=== PATIENT | male | born 1980 | race African-American/Black ===

== ENCOUNTER 2021-06-07 08:49 | Emergency (ER) | payer OTHER ==
[2021-06-07 08:55] VITALS: BP 123/77; PULSE 77; TEMP 98; BMI 23.6
== END 2021-06-07 10:02 | disposition home or self-care (01) ==
LOC: JERFT 08:49
DX: S16.1XXA Strain of muscle, fascia and tendon at neck level, initial encounter (principal); S46.911A Strain of unspecified muscle, fascia and tendon at shoulder and upper arm level, right arm, initial encounter; Y99.9 Unspecified external cause status
CPT/HCPCS: 99283-25

== ENCOUNTER 2021-10-18 02:35 | Emergency (ER) | payer OTHER ==
[2021-10-18 02:57] VITALS: BP 122/78; PULSE 82; TEMP 98.2; BMI 28.8
[2021-10-18] MEDS ORDERED: DEXAMETHASONE SOD PHOSPHATE 10 MG/1 ML VIAL IM ONE (03:08)
[2021-10-18] MEDS ORDERED: FAMOTIDINE 10 MG TABLET PO ONE (03:08)
[2021-10-18] MEDS ORDERED: DIPHENHYDRAMINE HCL 25 MG/10 ML CUP PO ONE (03:08)
[2021-10-18] MEDS ORDERED: DEXAMETHASONE SOD PHOSPHATE 10 MG/1 ML VIAL ONE (03:13)
[2021-10-18] MEDS ORDERED: FAMOTIDINE 20 MG TABLET ONE (03:13)
[2021-10-18] MEDS ORDERED: diphenhydrAMINE HCL 25 MG CAPSULE (FP) PO ONE (03:13)
== END 2021-10-18 03:28 | disposition home or self-care (01) ==
LOC: JER 02:35
PROC: 3E023NZ Introduction of Analgesics, Hypnotics, Sedatives into Muscle, Percutaneous Approach (ICD-10-PCS; principal; 2021-10-18)
DX: R21 Rash and other nonspecific skin eruption (principal)
CPT/HCPCS: 99283-25; J1100

== ENCOUNTER 2022-01-07 13:26 | Emergency (ER) | payer OTHER ==
[2022-01-07 13:44] VITALS: BP 150/79; PULSE 71; RESP 18; BMI 23.6
[2022-01-07] MEDS ORDERED: DIPHTH,PERTUSS(ACELL),TET 0.5 ML DISP.SYRIN IM ONE ×2 (14:27→14:32)
== END 2022-01-07 14:35 | disposition home or self-care (01) ==
LOC: JER 13:26 → JERFT 13:26
PROC: 3E0234Z Introduction of Serum, Toxoid and Vaccine into Muscle, Percutaneous Approach (ICD-10-PCS; principal; 2022-01-07)
DX: S61.412A Laceration without foreign body of left hand, initial encounter (principal); W26.8XXA Contact with other sharp object(s), not elsewhere classified, initial encounter
CPT/HCPCS: 90715; 99284-25

== ENCOUNTER 2022-10-05 08:15 | Emergency (ER) | payer OTHER ==
[2022-10-05 08:23] VITALS: BP 131/87; PULSE 68; RESP 18; TEMP 97.9; BMI 22.6
[2022-10-05] MEDS ORDERED: ACETAMINOPHEN 1000 MG/100 ML BAG IVPB ONE (08:42)
[2022-10-05] MEDS ORDERED: MAG HYDROX/AL HYDROX/SIMETH -MYLANTA- ORAL SUSPENSION PO ONE (08:42)
[2022-10-05] MEDS ORDERED: FAMOTIDINE 20 MG/50 ML IVPB 20 MG/50 ML MG IVPB ONE ×2 (08:42→08:53)
[2022-10-05] MEDS ORDERED: ACETAMINOPHEN INJECTION 100 ML IVPB ONE (08:53)
[2022-10-05] MEDS ORDERED: MAG HYDROX/AL HYDROX/SIMETH 30 ML UNIT-DOSE CUP ONE (08:53)
[2022-10-05 09:23] LABS: BASO % 1.1 % (0-2.0); EOS % 6.7 % (0-4.5); HEMATOCRIT 38.6 % (35.4-49); HEMOGLOBIN 13.2 GM/dL (11.7-16.9); MCH 31.8 pg (25.7-33.7); MCHC 34.2 g/dl (32.0-35.9); MEAN CELL VOLUME 92.9 fl (80-96); MEAN PLT VOLUME 9.6 fl (7.5-11.1); MONO % 14.3 % (3.8-10.2); NEUT % 39.9 % (42.8-82.8); PLATELET COUNT 167 10^3/uL (134-434); RBC 4.16 M/mm3 (4.00-5.60); RDW 13.9 % (11.9-15.9); WHITE BLOOD COUNT 4.1 K/mm3 (4.0-10.0)
[2022-10-05 09:29] LABS: INR 1.07 (0.83-1.09); PROTHROMBIN TIME (PATIENT) 12.4 SEC (9.7-13.0)
[2022-10-05 09:32] LABS: ACTIVATED PTT 33.3 SECONDS (25.2-36.5)
[2022-10-05 09:42] LABS: POTASSIUM 4.7 mmol/L (3.5-5.1)
[2022-10-05 09:44] LABS: BLOOD UREA NITROGEN 13.8 mg/dL (7-18); CALCIUM 9.5 mg/dL (8.5-10.1)
[2022-10-05 09:49] LABS: BILIRUBIN,TOTAL 0.4 mg/dL (0.2-1); TOT PROT 7.7 g/dl (6.4-8.2)
== END 2022-10-05 10:31 | disposition home or self-care (01) ==
LOC: JER 08:15
PROC: 3E033GC Introduction of Other Therapeutic Substance into Peripheral Vein, Percutaneous Approach (ICD-10-PCS; principal; 2022-10-05)
PROC: 3E033NZ Introduction of Analgesics, Hypnotics, Sedatives into Peripheral Vein, Percutaneous Approach (ICD-10-PCS; 2022-10-05)
DX: R07.89 Other chest pain (principal); R00.2 Palpitations
CPT/HCPCS: 36415; 71045-TC-FY; 80053; 83690; 84439; 84443; 84484; 85025; 85610; 85730; 93005; 93010; 99285-25

== ENCOUNTER 2023-01-02 14:50 | Emergency (ER) | payer OTHER ==
[2023-01-02 15:02] VITALS: BP 123/75; PULSE 79; RESP 18; TEMP 98.7; BMI 22.8
[2023-01-02 16:05] LABS: EPI CELLS 1 /uL (0-25.1); HYALINE CASTS 0 /uL (0-3.1); URINE APPEARANCE CLEAR; URINE BACTERIA 3 /uL (0-1359); URINE BILIRUBIN NEGATIVE (NEGATIVE); URINE COLOR YELLOW; URINE GLUCOSE (UA) NEGATIVE (NEGATIVE); URINE KETONE TRACE (NEGATIVE); URINE LEUK ESTERASE NEGATIVE (NEGATIVE); URINE NITRITE NEGATIVE (NEGATIVE); URINE PROTEIN NEGATIVE (NEGATIVE); URINE RBC 35 /uL (0-23.9); URINE WBC 3 /uL (0-25.8)
[2023-01-02 16:44] LABS: BASO % 0.6 % (0-2.0); EOS % 1.8 % (0-4.5); HEMATOCRIT 37.7 % (35.4-49); HEMOGLOBIN 13.1 GM/dL (11.7-16.9); LYMPH % 42.1 % (8-40); MCH 32.1 pg (25.7-33.7); MCHC 34.8 g/dl (32.0-35.9); MEAN CELL VOLUME 92.3 fl (80-96); MEAN PLT VOLUME 8.7 fl (7.5-11.1); MONO % 12.2 % (3.8-10.2); NEUT % 43.3 % (42.8-82.8); PLATELET COUNT 169 10^3/uL (134-434); RBC 4.08 M/mm3 (4.00-5.60); RDW 13.2 % (11.9-15.9); WHITE BLOOD COUNT 4.5 K/mm3 (4.0-10.0)
[2023-01-02 17:22] LABS: ALBUMIN 4.1 g/dl (3.4-5.0); BILIRUBIN,TOTAL 0.2 mg/dL (0.2-1); CALCIUM 9.1 mg/dL (8.5-10.1); CREATININE 1.3 mg/dL (0.55-1.3); POTASSIUM 3.6 mmol/L (3.5-5.1); TOT PROT 7.7 g/dl (6.4-8.2)
== END 2023-01-02 18:18 | disposition home or self-care (01) ==
LOC: JERFT 14:50 → JER 14:50 → JERFT 18:18
DX: R35.0 Frequency of micturition (principal); R30.0 Dysuria
CPT/HCPCS: 36415; 80053; 81003; 82962; 83036; 85025; 87086; 99283-25

== ENCOUNTER 2023-01-07 16:39 | Emergency (ER) | payer OTHER ==
[2023-01-07 17:02] VITALS: BP 143/91; PULSE 63; RESP 20; TEMP 98.6; BMI 22.8
[2023-01-07] MEDS ORDERED: ACETAMINOPHEN 1000 MG/100 ML BAG IVPB ONE (17:18)
[2023-01-07] MEDS ORDERED: METOCLOPRAMIDE HCL INJECTION 10 MG/2 ML VIAL IVPB ONE (17:18)
[2023-01-07] MEDS ORDERED: SODIUM CHLORIDE 1,000 ML IV STA (17:18)
[2023-01-07] MEDS ORDERED: METOCLOPRAMIDE HCL INJECTION 10 MG/2 ML VIAL ONE (17:40)
[2023-01-07] MEDS ORDERED: ACETAMINOPHEN INJECTION 100 ML IVPB ONE (17:41)
== END 2023-01-07 18:25 | disposition home or self-care (01) ==
LOC: FER 16:39
PROC: 3E033NZ Introduction of Analgesics, Hypnotics, Sedatives into Peripheral Vein, Percutaneous Approach (ICD-10-PCS; principal; 2023-01-07)
PROC: 3E033GC Introduction of Other Therapeutic Substance into Peripheral Vein, Percutaneous Approach (ICD-10-PCS; 2023-01-07)
PROC: 3E0337Z Introduction of Electrolytic and Water Balance Substance into Peripheral Vein, Percutaneous Approach (ICD-10-PCS; 2023-01-07)
DX: G43.909 Migraine, unspecified, not intractable, without status migrainosus (principal); H53.8 Other visual disturbances
CPT/HCPCS: 99284-25

== ENCOUNTER 2023-11-15 16:53 | Emergency (ER) | payer OTHER ==
[2023-11-15 17:06] VITALS: BP 111/89; PULSE 61; RESP 18; TEMP 97.7; BMI 23.6
[2023-11-15] MEDS ORDERED: ACETAMINOPHEN INJECTION 100 ML IVPB ONE (17:20)
[2023-11-15] MEDS ORDERED: FAMOTIDINE 20 MG/50 ML IVPB 20 MG/50 ML MG IVPB ONE (17:20)
[2023-11-15] MEDS ORDERED: MAG HYDROX/AL HYDROX/SIMETH 30 ML UNIT-DOSE CUP ONE (17:20)
[2023-11-15] MEDS: MAG HYDROX/AL HYDROX/SIMETH 30 ML UNIT-DOSE CUP PO ONE (17:45)
[2023-11-15] MEDS: FAMOTIDINE 20 MG/50 ML IVPB 20 MG/50 ML MG IVPB ONE (18:00)
[2023-11-15] MEDS: SODIUM CHLORIDE 1,000 ML IV STA (18:00)
[2023-11-15] MEDS: ACETAMINOPHEN 1000 MG/100 ML BAG IVPB ONE (18:02)
[2023-11-15 18:07] LABS: HEMOGLOBIN 13.3 G/dL (11.7-16.9); MCH 32.6 pg (25.7-33.7); MCHC 33.3 g/dl (32.0-35.9); MEAN CELL VOLUME 97.8 fl (80-96); MEAN PLT VOLUME 9.2 fl (7.5-11.1); PLATELET COUNT 155.4 10^3/uL (134-434); RBC 4.09 10^6/uL (4.00-5.60); WHITE BLOOD COUNT 6.1 10^3/uL (4.0-10.8)
[2023-11-15 18:26] LABS: ALBUMIN 4.4 g/dl (3.4-5.0); BILIRUBIN,TOTAL 0.4 mg/dl (0.2-1); CALCIUM 9.5 mg/dl (8.5-10.1); CREATININE 1.1 mg/dl (0.6-1.3); POTASSIUM 3.4 mmol/L (3.5-5.1); TOT PROT 6.9 g/dl (6.4-8.2)
[2023-11-15] MEDS ORDERED: POTASSIUM CHLORIDE ORAL LIQUID 20 MEQ/15 ML ONE (18:43)
[2023-11-15] MEDS: POTASSIUM CHLORIDE ORAL LIQUID 20 MEQ/15 ML PO ONE (18:47)
== END 2023-11-15 19:20 | disposition home or self-care (01) ==
LOC: FER 16:53
PROC: 3E033GC Introduction of Other Therapeutic Substance into Peripheral Vein, Percutaneous Approach (ICD-10-PCS; principal; 2023-11-15)
PROC: 3E033NZ Introduction of Analgesics, Hypnotics, Sedatives into Peripheral Vein, Percutaneous Approach (ICD-10-PCS; 2023-11-15)
DX: R10.33 Periumbilical pain (principal)
CPT/HCPCS: 36415; 76705-TC; 80053; 83690; 85027; 99284-25; J0131